=== PATIENT | female | born 1945 | race Asian ===

== ENCOUNTER 2019-11-29 10:21 | Outpatient (CLI) | payer OTHER ==
[2019-11-29 11:35] LABS: PLATELET COUNT 486 K/uL (152-353)
[2019-11-29 11:50] LABS: POTASSIUM 4.1 mmol/L (3.6-5.2); SODIUM 140 mmol/L (136-145)
== END 2019-11-29 19:10 | disposition home or self-care (01) ==
LOC: RAD 10:21
PROVIDERS: Family Medicine
DX: R07.89 Other chest pain (principal); I10 Essential (primary) hypertension; E78.49 Other hyperlipidemia; N95.1 Menopausal and female climacteric states; R73.9 Hyperglycemia, unspecified; D50.8 Other iron deficiency anemias; K21.9 Gastro-esophageal reflux disease without esophagitis; E55.9 Vitamin D deficiency, unspecified
CPT/HCPCS: 36415; 80053; 80061; 81000; 82306; 82550; 82728; 83036; 83540; 83550; 83735; 84439; 84443; 84484; 85027; 93005

== ENCOUNTER 2019-12-29 11:09 | Outpatient (CLI) | payer OTHER | END 2019-12-29 21:01 | disposition home or self-care (01) | LOC: MAMMO 11:09 | PROVIDERS: ATTEND Family Medicine | DX: N95.1 Menopausal and female climacteric states (principal); Z12.31 Encounter for screening mammogram for malignant neoplasm of breast ==

== ENCOUNTER 2020-01-24 10:06 | Outpatient (CLI) | payer OTHER | END 2020-01-24 19:55 | disposition home or self-care (01) | LOC: RESP 10:06 | PROVIDERS: ATTEND Internal Medicine Cardiovascular Disease | DX: R07.89 Other chest pain (principal) ==

== ENCOUNTER 2020-01-26 08:08 | Outpatient (CLI) | payer OTHER ==
[~2020-01-26] VITALS: Ht 157.5 cm; Wt 72.6 kg
== END 2020-01-26 20:03 | disposition home or self-care (01) ==
LOC: NM 08:08
PROVIDERS: ATTEND Internal Medicine Cardiovascular Disease
DX: R07.89 Other chest pain (principal)
CPT/HCPCS: A9500; J2785

== ENCOUNTER 2020-02-24 12:50 | Outpatient (CLI) | payer OTHER | END 2020-02-24 19:04 | disposition home or self-care (01) | LOC: LAB 12:50 | PROVIDERS: ATTEND Family Medicine | DX: U07.1 COVID-19 (principal); R05 Cough; R50.9 Fever, unspecified; R51.9 Headache, unspecified; Z20.828 Contact with and (suspected) exposure to other viral communicable diseases | CPT/HCPCS: 87635; G2023; U0003 ==

== ENCOUNTER 2021-01-01 09:36 | Outpatient (CLI) | payer OTHER | END 2021-01-01 20:21 | disposition home or self-care (01) | LOC: MAMMO 09:36 | PROVIDERS: ATTEND Family Medicine | DX: Z12.31 Encounter for screening mammogram for malignant neoplasm of breast (principal) ==

== ENCOUNTER 2021-06-07 09:02 | Outpatient (CLI) | payer OTHER | END 2021-06-07 20:26 | disposition home or self-care (01) | LOC: RESP 09:02 | PROVIDERS: ATTEND Internal Medicine Cardiovascular Disease | DX: I10 Essential (primary) hypertension (principal) ==

== ENCOUNTER 2021-08-12 12:59 | Outpatient (CLI) | payer OTHER | END 2021-08-12 19:51 | disposition home or self-care (01) | LOC: RAD 12:59 | PROVIDERS: ATTEND Family Medicine | DX: R10.84 Generalized abdominal pain (principal); Z87.19 Personal history of other diseases of the digestive system; Z09 Encounter for follow-up examination after completed treatment for conditions other than malignant neoplasm ==

== ENCOUNTER 2021-10-10 10:42 | Outpatient (CLI) | payer OTHER | END 2021-10-10 19:24 | disposition home or self-care (01) | LOC: RESP 10:42 | PROVIDERS: ATTEND Family Medicine | DX: I10 Essential (primary) hypertension (principal); R73.9 Hyperglycemia, unspecified; E78.49 Other hyperlipidemia | CPT/HCPCS: 93005 ==

== ENCOUNTER 2022-01-08 10:58 | Outpatient (CLI) | payer OTHER | END 2022-01-08 19:19 | disposition home or self-care (01) | LOC: MAMMO 10:58 | PROVIDERS: ATTEND Family Medicine | DX: Z12.31 Encounter for screening mammogram for malignant neoplasm of breast (principal) ==

== ENCOUNTER 2022-03-13 09:49 | Outpatient (CLI) | payer OTHER ==
[2022-03-13 11:49] LABS: POTASSIUM 4.6 mmol/L (3.6-5.2)
[2022-03-13 12:36] LABS: PLATELET COUNT 505 K/uL (152-353)
== END 2022-03-13 19:42 | disposition home or self-care (01) ==
LOC: US 09:49
PROVIDERS: ATTEND Family Medicine
DX: R42 Dizziness and giddiness (principal); I25.10 Atherosclerotic heart disease of native coronary artery without angina pectoris; I10 Essential (primary) hypertension; D64.89 Other specified anemias; E78.49 Other hyperlipidemia; R73.9 Hyperglycemia, unspecified; E55.9 Vitamin D deficiency, unspecified; K21.9 Gastro-esophageal reflux disease without esophagitis
CPT/HCPCS: 36415; 80053; 80061; 82306; 82550; 83036; 83735; 84439; 84443; 84484; 85027; 93005